=== PATIENT | male | born 1995 | race Caucasian/White ===

== ENCOUNTER 2020-07-12 20:57 | Emergency (ER) | payer OTHER | END 2020-07-12 22:05 | disposition home or self-care (01) | LOC: FER 20:57 | DX: S93.402A Sprain of unspecified ligament of left ankle, initial encounter (principal); Z88.0 Allergy status to penicillin; Z88.1 Allergy status to other antibiotic agents; X50.1XXA Overexertion from prolonged static or awkward postures, initial encounter; Y92.009 Unspecified place in unspecified non-institutional (private) residence as the place of occurrence of the external cause | CPT/HCPCS: 73610 ==